=== PATIENT | female | born 1935 | race Caucasian/White ===

== ENCOUNTER 2021-01-15 14:03 | Emergency (ER) | payer MEDICARE, SELFPAY ==
--- NOTE | ~2021-01-15 | US_ITS ---
EXAMINATION: US VENOUS ULTRASOUND WITH DOPPLER LOWER EXTREMITY, RIGHT CLINICAL INFORMATION: Right lower extremity edema. COMPARISON: None TECHNIQUE: Ultrasound of the deep veins is performed from the hip to the calf with compression sonography and color and pulse Doppler assessment. Spectral analysis with color-flow imaging is performed. FINDINGS: There is normal venous compression and respiratory variation and augmented flow. The visualized common femoral vein, superficial femoral vein, profunda femoral vein, popliteal vein, and the trifurcation region shows no evidence of deep venous thrombosis. There is no significant popliteal fossa cyst. Please note that the peroneal veins were not well-visualized, accordingly not evaluated. If the patient's symptoms persist, followup ultrasound in 5 days 7 days might be of value to exclude proximal propagation from a non-visualized calf vein. US/US venous duplex LE RT IMPRESSION: No DVT demonstrated in the right lower extremity. Suboptimal evaluation of the peroneal veins in the calf.
[2021-01-15 17:05] VITALS: BP 160/89; PULSE 70; RESP 16; TEMP 36.5; O2SAT 98; BMI 23.8
--- NOTE | 2021-01-15 18:29 | ED_ITS ---
HPI - Extremity Injury (Lower) General Chief Complaint: Extremity Injury, Lower Stated Complaint: R ANKLE SWELLING QUEST DVT Source: patient and family Mode of arrival: ambulatory Limitations: no limitations History of Present Illness HPI Narrative: 85-year-old female with past medical history of DVT on anticoagulation presents from her primary care physician's office for evaluation of right leg swelling and pain. Would like to be ruled out for DVT, does not report any traumatic injury or falls. Denies fevers, chills, chest pain or pressure, palpitations, shortness breath, shortness breath on exertion, short ness of breath and pain on inspiration, abdominal pain, abdominal distention, dysuria, hematuria, nausea, vomiting, diarrhea, constipation, and any other concerning symptoms. MD complaint: leg injury Onset (ago): day(s) (3) Type of Injury: unknown Place: home Severity: moderate Severity scale (1-10): 5 Relieving factors: nothing Exacerbating factors: weight bearing and movement Other symptoms: none Related Data Allergies Allergy/AdvReac Type Severity Reaction Status Date / Time acetaminophen [From PERCOCET] Allergy Intermediate NAUSEA. Verified 01/15/21 18:20 VOMITING Penicillins [PENICILLINS] Allergy Intermediate RASH Verified 01/15/21 18:20 Tetracyclines AdvReac Unknown Verified 01/15/21 18:20 From PERCOCET Allergy Intermediate NAUSEA. Uncoded 04/22/20 16:12 VOMITING Review of Systems Review of Systems: Constitutional: No Fever, No Chills ENT/Mouth: No Ear Pain, No Hoarseness, No sore throat Eyes: No Eye Pain, No Swelling, No Redness, No Foreign Body Cardiovascular: No Chest Pain, No SOB Respiratory: No Cough, No Dyspnea Gastrointestinal: No Nausea, No Vomiting, No Diarrhea, No abdominal Pain Genitourinary: No Dysuria, No Hematuria Musculoskeletal: Positive right lower extremity pain and swelling, No Myalgias, No Joint Swelling Skin: No Skin lacerations, No rash Neuro: No Weakness, No Numbness, No Paresthesias, No Loss of Consciousness, No Dizziness, No Headache Psych: No Anxiety/Panic, No Depression Heme/Lymph: no easy bruising, no Lymphadenopathy Endocrine: No Polyuria, No Polydipsia Yes all other systems are reviewed and are negative [facility] Past Medical History Attestation statement: The following information was validated with the patient. Source: old records reviewed Social History Social History Advance Directives: Yes Advance Directives Information Provided: No Advance Directives on File: No Physical Exam Vital Signs: Vital Signs: Last Vital Signs Temp 97.7 F 01/15/21 17:05 Pulse 64 01/15/21 21:32 Resp 17 01/15/21 21:32 BP 167/93 H 01/15/21 21:32 Pulse Ox 97 01/15/21 21:32 Body Mass Index 23.8 Appearance: Alert. Oriented X3. No acute distress. Eyes: Pupils equal, round and reactive to light. ENT: Pharynx normal. Neck: Normal inspection. Neck supple. CVS: Normal heart rate and rhythm. Pulses normal. Respiratory: No respiratory distress. Breath sounds normal. Abdomen: Soft and nontender. Skin: Skin warm and dry. Normal skin color. Normal skin turgor. Extremities: Right lower leg swelling, greater than the left. Full range of motion to all extremities. Brisk capillary refill and equal pedal pulses. Neuro: No motor deficit. No sensory deficit. Course Course Course Narrative: 85-year-old female presents with right lower extremity swelling. Has history of DVT on anticoagulation. Will order venous duplex to rule out DVT. Duplex negative for DVT. Will discharge home and have patient follow-up with primary care. Patient verbalized understanding of and agrees to plan of care discharge home. MDM - Extremity Injury (Lower) MDM Narrative Medical decision making narrative: DVT, lymphadenopathy, edema, cellulitis Medical Records Attestation: I reviewed the patient's medical records. Lab Data Attestation: I reviewed the patient's lab results. Imaging Data Right venous duplex: Attestation: I personally reviewed and interpreted this imaging study as follows: Radiologist's impression: EXAMINATION: US VENOUS ULTRASOUND WITH DOPPLER LOWER EXTREMITY, RIGHT CLINICAL INFORMATION: Right lower extremity edema. COMPARISON: None TECHNIQUE: Ultrasound of the deep veins is performed from the hip to the calf with compression sonography and color and pulse Doppler assessment. Spectral analysis with color-flow imaging is performed. FINDINGS: There is normal venous compression and respiratory variation and augmented flow. The visualized common femoral vein, superficial femoral vein, profunda femoral vein, popliteal vein, and the trifurcation region shows no evidence of deep venous thrombosis. There is no significant popliteal fossa cyst. Please note that the peroneal veins were not well-visualized, accordingly not evaluated. If the patient's symptoms persist, followup ultrasound in 5 days 7 days might be of value to exclude proximal propagation from a non-visualized calf vein. US/US venous duplex LE RT IMPRESSION: No DVT demonstrated in the right lower extremity. Suboptimal evaluation of the peroneal veins in the calf. Discharge Plan Discharge Clinical Impression: Right leg swelling Patient Disposition: Home, Self-Care Instructions: Leg Edema (ED) Additional Instructions: You were evaluated for right lower extremity swelling. Your venous duplex was negative for DVT. Based on your history of DVTs, if your swelling persist, please repeat DVT study in 5-7 days. Follow-up with primary care physician later this week. Thank you for choosing this emergency department for evaluation. Please follow-up with primary care physician as needed. Return to the emergency department for any new, concerning, or worsening symptoms. Interventions: ED Discharge Assessment Last Done: 01/15/21 21:40 Discharge Date/Time: 01/15/21 21:41
[2021-01-15 21:32] VITALS: BP 167/93; PULSE 64; RESP 17; O2SAT 97
== END 2021-01-15 21:41 | disposition home or self-care (01) ==
PROVIDERS: Emergency Provider Internal Medicine; PCP Hospitalist
DX: R60.0 Localized edema (principal); Z86.718 Personal history of other venous thrombosis and embolism; Z79.01 Long term (current) use of anticoagulants
CPT/HCPCS: 93971; 99284